=== PATIENT | female | born 1970 | race Two or more races ===

== ENCOUNTER 2018-11-08 14:25 | Emergency (ER) | payer BC, OTHER ==
[~2018-11-08] VITALS: Ht 149.9 cm; Wt 54.0 kg
--- NOTE | 2018-11-08 14:38 | NUR ---
CONTACT WITH PT, PER REPORT PT WOKE UP WITH A HEADACHE. PT WITH A HX OF MIGRAINES, "THIS NOT A TYPICAL MIGRAINE. PT WITH SENSITIVITY TO LIGHT. PT COVERING HEAD WITH BLANKET. MUMBLED SPEECH AT THIS TIME. DR SCHMITT AT BEDSIDE TO [facility] PTL Addendum: 11/08/18 at 1441 by [email or web address] PT ARRIVED WITH IV IN RAC. RECEIVED ZOFRAN UI DEVELOPER WITH ANGULAR JS.
[2018-11-08] MEDS ORDERED: PROCHLORPERAZINE 5 MG/ML, 2ML ONE (14:50)
[2018-11-08] MEDS ORDERED: DIPHENHYDRAMINE 50 MG/ML, 1ML ONE (14:50)
--- NOTE | 2018-11-08 14:59 | NUR ---
BREAK RN. PT MEDICATED NOTED PER ORDER FOR 10/10 HOBSON PAIN. PT ASSISTED WITH BEDPAN. FAMILY AT BEDSIDE. CALL LIGHT IN REACH. FALL PRECAUTIONS IN PLACE. WARM BLANKET PROVIDED FOR COMFORT.
[2018-11-08] MEDS ORDERED: SODIUM CHLORIDE FLUSH 10ML SYR IVF ONE (15:00)
[2018-11-08] MEDS ORDERED: DIPHENHYDRAMINE 50 MG/ML, 1ML IVPush ONE (15:00)
[2018-11-08] MEDS ORDERED: PROCHLORPERAZINE 5 MG/ML, 2ML IVPush ONE (15:00)
--- NOTE | 2018-11-08 15:24 | NUR ---
BREAK RN.PT REPORTS HOBSON IMPROVING, MORE CALM AND RELAXED, NAUSEA IMPROVED. ICE PACK PROVIDED PER REQUEST FOR HOBSON PAIN. ASSISTED WITH BEDPAN, SUCCESSFUL VOID. LAB AT BEDSIDE. FAMILY AT BEDSIDE. VSS. CALL LIGHT IN REACH, FALL PRECAUTIONS IN PLACE.
[2018-11-08 15:27] LABS: BASOPHILS # (AUTO) 0.03 x10^3/uL (0-0.1); BASOPHILS % (AUTO) 0 % (0-1); EOSINOPHILS # (AUTO) 0.03 x10^3/uL (0-0.4); EOSINOPHILS % (AUTO) 0 % (1-7); LYMPHOCYTES # (AUTO) 2.63 x10^3/uL (1-3.4); LYMPHOCYTES % (AUTO) 27 % (22-44); MD NO; MEAN CORPUSCULAR HEMOGLOBIN 27.4 pg (27.0-34.8); MEAN CORPUSCULAR HGB CONC 32.7 g/dL (32.4-35.8); MEAN CORPUSCULAR VOLUME 83.9 fL (80-100); MEAN PLATELET VOLUME 8.3 fL (7.4-10.4); MONOCYTES # (AUTO) 0.49 x10^3/uL (0.2-0.8); MONOCYTES % (AUTO) 5 % (2-9); NEUTROPHILS # (AUTO) 6.62 x10^3/uL (1.8-6.8); NEUTROPHILS % (AUTO) 68 % (42-75); PLATELET COUNT 311 x10^3/uL (130-400)
--- NOTE | 2018-11-08 15:35 | NUR ---
REPORT AND CARE BACK TO PRIMARY RN ADAMS AT THIS TIME
[2018-11-08 15:40] LABS: ALBUMIN 4.3 g/dL (3.4-5.0); ANION GAP 7 mmol/L (5-15); CALCIUM 9.5 mg/dL (8.5-10.1); CHLORIDE 107 mmol/L (98-107); CREATININE 0.81 mg/dL (0.55-1.02)
--- NOTE | 2018-11-08 16:00 | NUR ---
PT DOZING INTERMITTENTLY, AROUSES EASILY, STATES "I'M TIRED" PAIN "NOT THAT BAD" 01/06. FAMILY AT BEDSIDE. PT AND FAMILY AWARE OF WAITING FOR TEST RESULTS. PT PROVIDED WITH KIKE PAWS WARMER. NO OTHER NEEDS EXPRESSED AT THIS TIME.
--- NOTE | 2018-11-08 17:38 | NUR ---
PT CONT DROWSY, AROUSES EASILY. IV DC'D WITH CANNULA INTACT. REVIEWED DC INSTRUCTIONS WITH PT, UNDERSTANDING VERBALIZED. PT LEFT AMB WITH FAMILY. PAIN DECREASED TO 3/10.
[2018-11-08 17:39] VITALS: BP 93/61
== END 2018-11-08 17:41 | disposition home or self-care (01) ==
LOC: ED 16:30
DX: G43.909 Migraine, unspecified, not intractable, without status migrainosus (principal)
CPT/HCPCS: 36415; 70450; 80048; 82040; 85025; 93005; 96374; 96375; 99284; J0780; J1200